=== PATIENT | male | born 1975 | race African-American/Black ===

== ENCOUNTER 2017-06-08 17:17 | Emergency (ER) | payer MEDICAID ==
[~2017-06-08] VITALS: Ht 177.8 cm; Wt 120.0 kg
[2017-06-08 17:42] VITALS: BP 143/94
== END 2017-06-08 21:02 | disposition left against medical advice (07) ==
LOC: ER 18:32
DX: M79.89 Other specified soft tissue disorders (principal); Z53.21 Procedure and treatment not carried out due to patient leaving prior to being seen by health care provider
CPT/HCPCS: Z7610 ×2

== ENCOUNTER 2017-11-13 11:26 | Emergency (ER) | payer MEDICAID ==
[~2017-11-13] VITALS: Ht 175.3 cm; Wt 123.0 kg
[2017-11-13 12:02] VITALS: BP 148/92
[2017-11-13] MEDS ORDERED: LIDOCAINE HCL 1% 20ML VIAL (Pyxis) INJ MC ONE (12:15)
[2017-11-13] MEDS ORDERED: BACITRACIN ZINC OINT UDPKT TOP ONE (12:15)
[2017-11-13] MEDS ORDERED: LIDOCAINE HCL/PF 1% 10 MG/ML 5ML VIAL IJ ONE (14:00)
== END 2017-11-13 15:52 | disposition home or self-care (01) ==
LOC: ER 14:14
DX: M27.2 Inflammatory conditions of jaws (principal); F17.200 Nicotine dependence, unspecified, uncomplicated; F12.10 Cannabis abuse, uncomplicated
CPT/HCPCS: 99283; J3490

== ENCOUNTER 2018-04-20 11:21 | Emergency (ER) | payer MEDICAID ==
[~2018-04-20] VITALS: Ht 170.2 cm; Wt 126.0 kg
[2018-04-20 11:23] VITALS: BP 161/94
[2018-04-20] MEDS ORDERED: ERYTHROMYCIN BASE 0.5% OPHTH OINT 3.5GM BOTHEYE ONE (12:45)
[2018-04-20] MEDS ORDERED: ACETAMINOPHEN 500MG TABLET PO ONE (12:45)
== END 2018-04-20 13:17 | disposition home or self-care (01) ==
LOC: ER 11:21
DX: H10.9 Unspecified conjunctivitis (principal); F17.200 Nicotine dependence, unspecified, uncomplicated
CPT/HCPCS: 99281

== ENCOUNTER 2019-01-18 05:01 | Emergency (ER) | payer MEDICAID ==
[~2019-01-18] VITALS: Ht 175.3 cm; Wt 118.0 kg
[2019-01-18 05:04] VITALS: BP 135/82
== END 2019-01-18 08:25 | disposition home or self-care (01) ==
LOC: ER 05:01
DX: S46.912A Strain of unspecified muscle, fascia and tendon at shoulder and upper arm level, left arm, initial encounter (principal); F17.200 Nicotine dependence, unspecified, uncomplicated; F12.10 Cannabis abuse, uncomplicated; I10 Essential (primary) hypertension; W22.8XXA Striking against or struck by other objects, initial encounter; Y93.89 Activity, other specified; Y92.89 Other specified places as the place of occurrence of the external cause; Y99.8 Other external cause status
CPT/HCPCS: 99282

== ENCOUNTER 2019-02-26 20:00 | Emergency (ER) | payer MEDICAID ==
[~2019-02-26] VITALS: Ht 175.3 cm; Wt 126.0 kg
[2019-02-26 21:57] VITALS: BP 145/80
== END 2019-02-26 21:57 | disposition home or self-care (01) ==
LOC: ER 20:00
DX: H10.023 Other mucopurulent conjunctivitis, bilateral (principal); H01.006 Unspecified blepharitis left eye, unspecified eyelid; H01.003 Unspecified blepharitis right eye, unspecified eyelid; I10 Essential (primary) hypertension; F12.10 Cannabis abuse, uncomplicated; F17.210 Nicotine dependence, cigarettes, uncomplicated
CPT/HCPCS: 99283

== ENCOUNTER 2019-05-24 16:40 | Emergency (ER) | payer MEDICAID ==
[~2019-05-24] VITALS: Ht 175.3 cm; Wt 131.0 kg
[2019-05-24 17:47] VITALS: BP 146/86
== END 2019-05-24 18:02 | disposition left against medical advice (07) ==
LOC: ER 16:40
DX: I10 Essential (primary) hypertension (principal); Z53.21 Procedure and treatment not carried out due to patient leaving prior to being seen by health care provider